=== PATIENT | male | born 1980 | race Caucasian/White ===

== ENCOUNTER → 2019-03-16 | Outpatient (CLI) | payer BC ==
--- NOTE | 2019-03-16 13:41 | MR ---
EXAMINATION TYPE: MR cervical spine wo con DATE OF EXAM: 03/16/2019 COMPARISON: None HISTORY: Cervical disc degeneration TECHNIQUE: Multiplanar, multisequence images of the cervical spine were acquired. FINDINGS: The cervical spine vertebral bodies identified. The sedation seen. Cord is unremarkable. No suspicious extra-axial fluid collection. Small amount of epidural fat in the cervical thoracic junct ion. Lower cervical spine bone marrow signal is lower limits of normal. C2-C3: Disc bulges, left eccentric without spinal canal stenosis nor neural foraminal narrowing. C3-C4: Broad-based disc bulge is seen without spinal canal stenosis or neural foraminal narrowing. C4-C5: Broad-based disc bulge with left-sided uncovertebral hypertrophy without spinal canal stenosis or neural foraminal narrowing. C5-C6: There is small left paracentral disc herniation, uncovertebral hypertrophy, and facet arthropa thy creating moderate right and mild left neural foraminal narrowing. No spinal canal stenosis. C6-C7: Broad-based disc bulge and uncovertebral hypertrophy creating mild left and moderate right reese roforaminal narrowing. No spinal canal stenosis. C7-T1: There is a broad-based disc bulge without spinal canal stenosis nor neural foraminal narrowing . IMPRESSION: 1. Small left paracentral disc herniation at C5-C6 without spinal canal stenosis. Mild multilevel deg enerative disc disease within the remainder the cervical spine creating neural foraminal narrowing at C5-C6 and C6-C7 as detailed above. 2. Lower cervical spine bone marrow signal is lower limits of normal. Correlate for anemia.
== END | disposition home or self-care (01) ==
LOC: RADMRIMAIN 11:33
PROVIDERS: ATTEND Family Medicine
DX: M48.02 Spinal stenosis, cervical region (principal); M50.222 Other cervical disc displacement at C5-C6 level; M50.322 Other cervical disc degeneration at C5-C6 level
CPT/HCPCS: 72141